=== PATIENT | male | born 1980 | race Caucasian/White ===

== ENCOUNTER 2022-05-14 07:43 | Emergency (ER) | payer SELFPAY ==
--- NOTE | 2022-05-14 07:45 | XR_ITS ---
WS: [id number] PORTABLE CHEST HISTORY: Elevated blood pressure COMPARISON: None available. Mild hyperexpansion. No pneumonia. No mass or nodule. No pleural effusion or pneumothorax. Cardiac size: Normal. Mediastinum/Aorta: Normal mediastinum. No osseous abnormality seen. XR/XR chest 1V portable [id number] IMPRESSION: Unremarkable portable chest.
[2022-05-14 07:49] VITALS: BP 138/86; PULSE 84; RESP 16; TEMP 37; O2SAT 97; BMI 20.5
--- NOTE | 2022-05-14 08:04 | ECG_ITS ---
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 Measurements Intervals [place] Rate: 77 P: 82 [place]: 130 QRS: 80 QRSD: 85 T: 68 QT: 356 QTc: 405 Interpretive Statements SINUS RHYTHM No previous ECG available for comparison Electronically Signed On 05-15-2022 9:23:07 BED LABORER by Elayne Cardona M.D. [id number]
--- NOTE | 2022-05-14 08:08 | W.ED.NAVMDI ---
HPI - Nausea/Vomiting/Diarrhea General: Chief complaint: Nausea/Vomiting/Diarrhea Stated complaint: High blood pressure/ stomach pain Time Seen by Provider: 05/14/22 07:45 Source: patient Mode of arrival: ambulatory History of Present Illness: 41-year-old male presents with multiple complaints is concerned about his blood pressure states it is in the 160s at night he says during the day it seems better he does not take anything for it. He also complained about some vomiting and diarrhea referred to some left lower quadrant pain although this seems to be a minimal complaint at the time that I seen seem to be when his focal complaints when he was seen the nurse in triage. Denies any medication melena hematemesis or coffee-ground emesis. No chest pain. MD elicited complaint: nausea, vomiting and diarrhea Onset (ago): day(s) Description of vomiting: food contents and watery Associated nausea: Yes Associated abdominal pain: Yes Location of pain: LLQ Pain consistency: intermittent Severity: mild Quality: cramping Exacerbating factors: none Relieving factors: none Associated symtoms: Reports nausea; Denies altered mental status, anxiety, bloating, change in vision, chest pain, cough, diaphoresis, decreased urine output, dizziness, dysuria, epistaxis, fatigue, malaise or palpitations Review of Systems Const: Denies: fever(s), chills, fatigue, malaise or diaphoresis Eyes: Denies: change in vision ENMT: Denies: throat pain, ear or mastoid pain or epistaxis Card: Denies: chest pain or palpitations Resp: Denies: dyspnea, productive cough or non-productive cough GI: Reports: abdominal pain, nausea, vomiting and diarrhea; Denies: bloating : Denies: dysuria Musc: Denies: neck pain or back pain Skin/Breast: Denies: rash or pruritus Neuro: Denies: dizziness Psych: Denies: anxiety PFSH ED PFSH: Medical History (Updated 05/14/22 @ 09:13 by William Roe DO) No significant past medical history Surgical History (Updated 05/14/22 @ 08:12 by William Roe DO) No pertinent past surgical history Social History (Updated 05/14/22 @ 08:12 by William Roe DO) Smoking and tobacco status: current every day smoker Alcohol intake: current Physical Exam Const: COMMON NORMALS: no acute distress EXAM LIMITATIONS: no altered mental status GENERAL APPEARANCE: cooperative and comfortable ORIENTATION/CONSCIOUSNESS: Yes awake, Yes oriented to person, Yes oriented to place and Yes oriented to time HENMT: COMMON NORMALS: normocephalic, atraumatic, hearing grossly normal bilaterally, external ears normal, EAC's normal, TM's normal bilaterally, Normal nasal mucous membranes and turbinates present, moist oral mucous membranes and oropharynx normal HEAD & SCALP: normocephalic and atraumatic NOSE: Normal nasal mucous membranes and turbinates present EXTERNAL EAR: Yes external ears normal EXTERNAL AUDITORY CANAL: EAC's normal TYMPANIC MEMBRANE: TM's normal bilaterally Eye: COMMON NORMALS: Equal, round and reactive pupils present, EOMs intact bilaterally, conjunctivae normal and no scleral icterus CONJUNCTIVA: Yes conjunctivae normal PUPIL: Yes Equal, round and reactive pupils present Neck/C-Spine: COMMON NORMALS: full ROM, no lymphadenopathy, supple and no JVD Lymph: LYMPHATIC: no lymphadenopathy noted and no lymphedema noted Resp: COMMON NORMALS: normal respiratory effort, No retractions, No use of accessory muscles and clear to auscultation bilaterally AUSCULTATION: clear to auscultation bilaterally Cardio: COMMON NORMALS: no JVD, regular rate, regular rhythm and No murmurs present (Cardio) RATE: regular rate RHYTHM: regular rhythm GI: COMMON NORMALS: Soft to palpation and No hepatosplenomegaly present AUSCULTATION: Yes normoactive bowel sounds PALPATION: Yes Soft to palpation, No Tenderness to palpation present (GI), No Guarding due to palpation present (GI) and Yes No hepatosplenomegaly present Extremity: COMMON NORMALS: normal to inspection, capillary refill normal, no clubbing, cyanosis or edema, no calf tenderness and no pedal edema Neuro: SENSORIUM/ORIENTATION: Yes oriented to person, Yes oriented to place and Yes oriented to time Skin: COMMON NORMALS: no rashes or lesions noted GENERAL SKIN EXAM: no rashes or lesions noted Course Vital Signs: Vital signs: Vital Signs Temperature 98.6 F 05/14/22 07:49 Pulse Rate 81 05/14/22 08:19 Respiratory Rate 16 05/14/22 08:19 Blood Pressure 130/93 05/14/22 08:19 Pulse Oximetry 98 05/14/22 08:19 Oxygen Delivery Me thod 05/14/22 08:19 MDM - Nausea/Vomiting/Diarrhea Medical Decision Making Labs unremarkable abdominal exam negative. Blood pressure normalized discharged home started on Pepcid establish with PCP to monitor blood pressure Medical Records I reviewed the patient's medical records. Lab Data I reviewed the patient's lab results. 05/14/22 08:14 05/14/22 08:14 Radiology Impressions Chest X-Ray 05/14/22 07:45 IMPRESSION: Unremarkable portable chest. Laboratory Results WBC 7.9 10^3/uL (4.0-10.0) 05/14/22 08:14 RBC 5.21 10^6/uL (4.1-5.3) 05/14/22 08:14 Hgb 16.7 g/dL (11.7-16.6) H 05/14/22 08:14 Hct 47.9 % (42.0-52.0) 05/14/22 08:14 MCV 91.9 fl (80-94) 05/14/22 08:14 MCH 32.1 pg (28.0-34.0) 05/14/22 08:14 MCHC 34.9 g/dL (30.0-36.0) 05/14/22 08:14 RDW 11.5 % (12.1-15.1) L 05/14/22 08:14 Plt Count 231 10^3/cmm (130-400) 05/14/22 08:14 MPV 11.3 fL (7.4-10.4) H 05/14/22 08:14 Neut % (Auto) 80.4 % 05/14/22 08:14 Lymph % (Auto) 12.7 % 05/14/22 08:14 [place] % (Auto) 4.9 % 05/14/22 08:14 Eos % (Auto) 0.5 % 05/14/22 08:14 Baso % (Auto) 0.5 % 05/14/22 08:14 Neut # (Auto) 6.33 10^3/uL (1.8-7.7) 05/14/22 08:14 Lymph # (Auto) 1.0 10^3/uL (0.8-4.8) 05/14/22 08:14 [place] # (Auto) 0.4 10^3/uL (0.2-0.9) 05/14/22 08:14 Eos # (Auto) 0.0 10^3/uL (0.0-0.8) 05/14/22 08:14 Baso # (Auto) 0.0 10^3/uL (0.0-0.1) 05/14/22 08:14 Nucleated RBC % (auto) 0 % 05/14/22 08:14 Nucleated RBCs # 0.0 /100WBC 05/14/22 08:14 Sodium 137 mmol/L (136-145) 05/14/22 08:14 Potassium 4.3 mmol/L (3.5-5.1) 05/14/22 08:14 Chloride 99 mmol/L (98-107) 05/14/22 08:14 Carbon Dioxide 25 mmol/L (22-29) 05/14/22 08:14 Anion Gap 17.3 (5-19) 05/14/22 08:14 BUN 8 mg/dL (6-20) 05/14/22 08:14 Creatinine 0.4 mg/dL (0.7-1.2) L 05/14/22 08:14 GFR Calculation 235.9 mL/min (90-130) H 05/14/22 08:14 Glucose 106 mg/dL (65-115) 05/14/22 08:14 Calculated Osmolality 283 mOsm/kg (285-295) L 05/14/22 08:14 Calcium 9.7 mg/dL (8.5-10.5) 05/14/22 08:14 Total Bilirubin 0.3 mg/dL (0.15-1.2) 05/14/22 08:14 AST 38 U/L (0-40) 05/14/22 08:14 ALT 38 U/L (0-41) 05/14/22 08:14 Alkaline Phosphatase 75 U/L (40-130) 05/14/22 08:14 Total Protein 8.3 g/dL (6.6-8.7) 05/14/22 08:14 Albumin 4.9 g/dL (3.5-5.2) 05/14/22 08:14 Globulin 3.4 g/dL (1.3-4.6) 05/14/22 08:14 Urine Color Colorless (Yellow) 05/14/22 08:04 Urine Appearance Clear (CLEAR) 05/14/22 08:04 Urine pH 7 (5-7) 05/14/22 08:04 Ur Specific [place] 1.005 (1.005-1.030) 05/14/22 08:04 Urine Protein Neg (Negative) 05/14/22 08:04 Urine Glucose (UA) Norm (Normal) 05/14/22 08:04 Urine Ketones Negative (Negative) 05/14/22 08:04 Urine Blood Neg (Negative) 05/14/22 08:04 Urine Nitrate Negative (Negative) 05/14/22 08:04 Urine Bilirubin Neg (Negative) 05/14/22 08:04 Urine Urobilinogen Norm mg/dL (Negative) 05/14/22 08:04 Ur Leukocyte Esterase Negative (Negative) 05/14/22 08:04 Discharge Plan Discharge Patient Disposition: Home Clinical Impression: Elevated blood pressure reading, Dyspepsia Prescriptions: New Pepcid 40 mg tablet 40 mg PO BID Qty: 60 0RF Discharge Orders: Discharge ED (Routine); Ordered 05/14/22 Ordered By: William Roe Patient Instructions: Opioid Safety, Pain Management Activity Restrictions/Additional Instructions: You are seen today for complaint of elevated blood pressure and abdominal pain. Your blood pressure normalized while you are in the emergency room your labs are unremarkable. Your abdominal exam was normal. We will start you on Pepcid. We will also have case management make arrangements for you to follow-up with a primary care doctor if your abdominal exam recurs or worsens they can refer as appropriate. They can also assist you with monitoring your blood pressure. Coding Level of Care Code ED Dental Floss Packer for Chg Fwd Exam Comprehensive
[2022-05-14 08:19] VITALS: BP 130/93; PULSE 81; RESP 16; O2SAT 98
[2022-05-14 08:22] LABS: Basophils % 0.5 %; Eosinophils % 0.5 %; Hematocrit 47.9 % (42.0-52.0); Hemoglobin 16.7 g/dL (11.7-16.6); Lymphocytes % 12.7 %; Mean Corpuscular HGB Conc 34.9 g/dL (30.0-36.0); Mean Corpuscular Hemoglobin 32.1 pg (28.0-34.0); Mean Corpuscular Volume 91.9 fl (80-94); Mean Platelet Volume 11.3 fL (7.4-10.4); Monocytes # 0.4 10^3/uL (0.2-0.9); Monocytes % 4.9 %; Neutrophils # 6.33 10^3/uL (1.8-7.7); Neutrophils % 80.4 %; Nucleated Red Blood Cells % 0 %; Platelet Count 231 10^3/cmm (130-400); Red Blood Count 5.21 10^6/uL (4.1-5.3); Red Cell Distribution Width 11.5 % (12.1-15.1); White Blood Count 7.9 10^3/uL (4.0-10.0)
[2022-05-14 08:25] LABS: Add Urine Microscopic? NO; Charge for UA Resulting for Rev
[2022-05-14 08:30] LABS: Bilirubin Urine Neg (Negative); Blood Urine Neg (Negative); Glucose Urine UA Norm (Normal); Ketones Urine Negative (Negative); Leukocyte Esterase Urine Negative (Negative); Nitrate Urine Negative (Negative); Protein Urine Neg (Negative); Specific Gravity, Urine 1.005 (1.005-1.030); Urine Appearance Clear (CLEAR); Urine Color Colorless (Yellow); Urobilinogen Urine Norm (Negative); pH Urine 7 (5-7)
[2022-05-14 08:43] LABS: Alanine Aminotransferase 38 U/L (0-41); Albumin Level 4.9 g/dL (3.5-5.2); Alkaline Phosphatase 75 U/L (40-130); Anion Gap 17.3 (5-19); Aspartate Amino Transferase 38 U/L (0-40); Blood Urea Nitrogen 8 mg/dL (6-20); Calcium 9.7 mg/dL (8.5-10.5); Carbon Dioxide 25 mmol/L (22-29); Chloride 99 mmol/L (98-107); Globulin 3.4 g/dL (1.3-4.6); Glomerular Filtration Rate 235.9 mL/min (90-130); Glucose 106 mg/dL (65-115); Osmolality Calculated 283 mOsm/kg (285-295); Potassium 4.3 mmol/L (3.5-5.1); Sodium 137 mmol/L (136-145); Total Bilirubin 0.3 mg/dL (0.15-1.2); Total Protein 8.3 g/dL (6.6-8.7)
[2022-05-14 09:21] VITALS: BP 129/85; PULSE 78; RESP 16; O2SAT 98
--- NOTE | 2022-05-15 10:31 | DCPLANNER ---
assignment manager had message to speak with patient about getting established with a primary care physician. assignment manager called phone number [phone], unable to speak with patient at this time, and unable to leave a voicemail with patient.
== END 2022-05-14 09:23 | disposition home or self-care (01) ==
PROVIDERS: Emergency Provider Family Medicine
DX: R03.0 Elevated blood-pressure reading, without diagnosis of hypertension (principal); R10.13 Epigastric pain; F17.210 Nicotine dependence, cigarettes, uncomplicated
CPT/HCPCS: 71045; 80053; 81003; 85025; 93005; 99285

== ENCOUNTER → 2022-07-31 14:48 | Outpatient (BNVA) | payer SELFPAY | PROVIDERS: PCP Family Medicine; Visit Provider Family Medicine | DX: K21.9 Gastro-esophageal reflux disease without esophagitis (principal); K44.9 Diaphragmatic hernia without obstruction or gangrene; I10 Essential (primary) hypertension | CPT/HCPCS: 80053; 80061; 83036; 84443; 85025 ==

== ENCOUNTER → 2022-09-26 12:16 | Outpatient (BNVA) | payer SELFPAY | PROVIDERS: PCP Family Medicine; Visit Provider Family Medicine | DX: R11.2 Nausea with vomiting, unspecified (principal); K52.9 Noninfective gastroenteritis and colitis, unspecified | CPT/HCPCS: 80053; 80074; 83690; 85025; 85651; 86003; 86008; 86140; 86618; 86666; 86757 ==

== ENCOUNTER 2022-12-17 12:47 | Emergency (ER) | payer SELFPAY ==
[2022-12-17 12:53] VITALS: BP 130/89; PULSE 112; RESP 18; TEMP 36.7; O2SAT 98
--- NOTE | 2022-12-17 13:13 | ECG_ITS ---
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 Measurements Intervals [place] Rate: 104 P: 71 [place]: 136 QRS: 32 QRSD: 85 T: 39 QT: 326 QTc: 429 Interpretive Statements SINUS TACHYCARDIA ABNORMAL RHYTHM ECG INTERPRETATION BASED ON A DEFAULT AGE OF 40 YEARS Compared to ECG 05/14/2022 08:04:33 Sinus rhythm no longer present Electronically Signed On 12-17-2022 22:44:53 CDT by Elayne Cardona M.D. [id number]
[2022-12-17 13:46] LABS: Basophils # 0.1 10^3/uL (0.0-0.1); Basophils % 0.9 %; Hematocrit 45.2 % (42.0-52.0); Hemoglobin 15.9 g/dL (11.7-16.6); Lymphocytes # 1.1 10^3/uL (0.8-4.8); Lymphocytes % 12.6 %; Mean Corpuscular HGB Conc 35.2 g/dL (30.0-36.0); Mean Corpuscular Hemoglobin 31.9 pg (28.0-34.0); Mean Corpuscular Volume 90.8 fl (80-94); Mean Platelet Volume 11.5 fL (7.4-10.4); Monocytes # 0.6 10^3/uL (0.2-0.9); Monocytes % 7.3 %; Neutrophils # 6.91 10^3/uL (1.8-7.7); Neutrophils % 78.9 %; Nucleated Red Blood Cells % 0 %; Platelet Count 193 10^3/cmm (130-400); Red Blood Count 4.98 10^6/uL (4.1-5.3); Red Cell Distribution Width 11.2 % (12.1-15.1); White Blood Count 8.8 10^3/uL (4.0-10.0)
[2022-12-17] MEDS: diphenhydrAMINE 50 mg/mL SDV 1mL IVP (14:01)
[2022-12-17] MEDS: prochlorperazine 10 mg/2 mL Inj 5 MG IVP (14:02)
[2022-12-17] MEDS: sodium chloride 0.9% 1,000 ML 999 ML IV (14:02)
[2022-12-17 14:07] VITALS: BP 147/93; PULSE 103; RESP 18; O2SAT 99
[2022-12-17 14:10] LABS: Alanine Aminotransferase 111 U/L (0-41); Alkaline Phosphatase 84 U/L (40-130); Anion Gap 20.9 (5-19); Aspartate Amino Transferase 99 U/L (0-40); Blood Urea Nitrogen 6 mg/dL (6-20); Calcium 9.9 mg/dL (8.5-10.5); Carbon Dioxide 26 mmol/L (22-29); Chloride 91 mmol/L (98-107); Globulin 3.8 g/dL (1.3-4.6); Glucose 113 mg/dL (65-115); Lipase 50 U/L (13-60); Osmolality Calculated 276 mOsm/kg (285-295); Potassium 3.9 mmol/L (3.5-5.1); Sodium 134 mmol/L (136-145); Total Bilirubin 0.8 mg/dL (0.15-1.2); Total Protein 8.8 g/dL (6.6-8.7)
[2022-12-17 14:11] LABS: Add Urine Microscopic? NO; Charge for UA Resulting for Rev
[2022-12-17 14:14] LABS: Bilirubin Urine Neg (Negative); Blood Urine Neg (Negative); Glucose Urine UA Norm (Normal); Ketones Urine 2+ (Negative); Leukocyte Esterase Urine Negative (Negative); Nitrate Urine Negative (Negative); Protein Urine Neg (Negative); Urine Appearance Clear (CLEAR); Urine Color Straw (Yellow); Urobilinogen Urine Norm (Negative); pH Urine 5 (5-7)
[2022-12-17 14:23] LABS: Amphetamines Screen Urine Negative (Negative); Barbiturates Screen Urine Negative (Negative); Benzodiazepines Screen Urine Negative (Negative); Cocaine Screen Urine Negative (Negative); Opiate Screen Urine Negative (Negative); PCP Screen Urine Negative (Negative); THC Screen Urine Negative (Negative)
[2022-12-17 15:00] VITALS: BP 143/94; PULSE 71; RESP 18; O2SAT 99
--- NOTE | 2022-12-17 15:05 | ED_ITS ---
HPI - Nausea/Vomiting/Diarrhea General: Chief complaint: Nausea/Vomiting/Diarrhea Stated complaint: high B/P sent by Time Seen by Provider: 12/17/22 13:35 History of Present Illness: 42-year-old male presents to the emergency department stating he woke up early this morning with nausea vomiting diarrhea. He reports that he gets diarrhea about once per week. He does not know why. He has not taken antibiotics recently. No history of C. difficile. He does not get fevers with this. Nothing black or bloody in his stool. No mucus. He has never had a colonoscopy. Patient reports he also feels like his heart races. This has been an ongoing issue for a long time. He usually races at night. He is not sure what the causes. He has no history of heart or lung disease per his report. He does drink beer on a daily basis. He has a history of transaminitis as well as GERD. Unclear if symptoms are related to alcohol use. He has had his appendix removed. He denies any abdominal pain today. Associated nausea: Yes Associated symtoms: Reports nausea and palpitations; Denies altered mental status, change in vision, chest pain, dysuria, headache(s) or syncope Review of Systems General: Reports: 10 or more systems reviewed and unremarkable except in HPI and below Const: Denies: fever(s), chills or body aches Eyes: Denies: change in vision ENMT: Denies: throat pain Card: Reports: palpitations; Denies: chest pain, edema, lightheadedness or syncope Resp: Denies: dyspnea or productive cough GI: Reports: nausea, vomiting and diarrhea; Denies: abdominal pain, hematemesis, coffee ground emesis, dysphagia, hematochezia, melena or mucus in stool : Denies: flank pain, dysuria or urinary frequency Musc: Denies: neck pain, back pain, extremity pain or extremity swelling Skin/Breast: Denies: rash or erythema Neuro: Denies: headache(s), numbness in extremities, weakness in extremities, lack of coordination or difficulty walking [facility] ED PFSH: Medical History No significant past medical history Surgical History History of appendectomy History of surgery Infection in ribs No pertinent past surgical history Family History Denies family history of Diabetes CAD (coronary artery disease) Clotting disorder Dementia Hyperlipidemia Psychiatric illness Chronic kidney disease (CKD) Suicide Anesthesia complication Bleeding disorder Family history of premature coronary artery disease Lung disease Cancer Hypertension Stroke Social History Smoking and tobacco status: never smoked Second hand smoke exposure: No Smoking risk assessment/counseling performed?: No Alcohol intake: current Alcohol intake frequency: 3 or more drinks per day Alcohol type: beer Desire information about alcohol rehabilitation?: No Counseling given: No Substance/Drug Use: never Desire information about substance/drug rehabilitation?: No Counseling given: No Adopted: No Caregiver/support person: No Lives independently: Yes Marital status: Single Number of children: 0 service: No Current occupational status: employed 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 Physical Exam Const: COMMON NORMALS: no limitations, alert and well nourished EXAM LIMITATIONS: no altered mental status HENMT: COMMON NORMALS: normocephalic, atraumatic and external ears normal HEAD & SCALP: normocephalic and atraumatic EXTERNAL EAR: Yes external ears normal MOUTH: no muffled voice Eye: COMMON NORMALS: EOMs intact bilaterally, conjunctivae normal and no scleral icterus CONJUNCTIVA: Yes conjunctivae normal Neck/C-Spine: COMMON NORMALS: no JVD GENERAL: Yes normal visual inspection and Yes trachea midline Resp: COMMON NORMALS: normal respiratory effort, No use of accessory muscles and clear to auscultation bilaterally AUSCULTATION: clear to auscultation bilaterally Cardio: COMMON NORMALS: no JVD, regular rate and regular rhythm RATE: regular rate RHYTHM: regular rhythm GI: COMMON NORMALS: Soft to palpation and non-tender INSPECTION: Yes normal to inspection AUSCULTATION: Yes Hyperactive bowel sounds present PA LPATION: Yes Soft to palpation and No Guarding due to palpation present (GI) Extremity: COMMON NORMALS: normal to inspection Neuro: COMMON NORMALS: moves all extremities, no focal motor deficits and no sensory deficits noted SENSORIUM/ORIENTATION: Yes alert SPEECH: speech normal Psych: COMMON NORMALS: mental status grossly normal, Normal thought process present, cooperative and speech normal SPEECH: Yes normal speech MOOD & AF FECT: Yes anxious THOUGHT PROCESS: Normal thought process present Skin: COMMON NORMALS: no rashes or lesions noted, turgor normal and no jaundice GENERAL SKIN EXAM: no rashes or lesions noted and turgor normal Course Vital Signs: Vital signs: Vital Signs Temperature 98.1 F 12/17/22 12:53 Pulse Rate 71 12/17/22 15:00 Respiratory Rate 18 12/17/22 15:00 Blood Pressure 143/94 12/17/22 15:00 Pulse Oximetry 99 12/17/22 15:00 Oxygen Delivery Me thod Room Air 12/17/22 15:00 MDM - Nausea/Vomiting/Diarrhea Medical Decision Making 42-year-old male presents with nausea vomiting diarrhea. He does not appear toxic. His diarrhea seems to be a chronic recurrent issue. He denies any high risk factors for infectious diarrhea. He feels like his heart is racing during the time of examination but it is 76, sinus rhythm, no ectopy. He does appear somewhat anxious. There is the possibility that he is having a paroxysmal arrhythmia or sinus tachycardia. There is also the question whether alcohol use precipitates his GI symptoms and heart racing. Abdomen is soft and nontender. No reason for CT imaging today. I did send some blood work and noted that his white blood cell count was normal, hemoglobin normal, platelets normal. Sodium is 134, chloride 91. Bicarb is 26, probably from vomiting. Renal function is normal. He does have some transaminitis. This appears to be chronic. He has some ketones in his urine, likely related to starvation since he has been having vomiting today. I ordered him some Compazine and Benadryl followed by Elma as he did not feel that his symptoms had resolved. He is also gotten 1 L of IV fluid and 4 of morphine. I will order him some diarrhea medicine to help slow this down as well. Low suspicion for C. difficile, or invasive diarrheas Lab Data 12/17/22 13:05 12/17/22 13:05 Laboratory Results WBC 8.8 10^3/uL (4.0-10.0) 12/17/22 13:05 RBC 4.98 10^6/uL (4.1-5.3) 12/17/22 13:05 Hgb 15.9 g/dL (11.7-16.6) 12/17/22 13:05 Hct 45.2 % (42.0-52.0) 12/17/22 13:05 MCV 90.8 fl (80-94) 12/17/22 13:05 MCH 31.9 pg (28.0-34.0) 12/17/22 13:05 MCHC 35.2 g/dL (30.0-36.0) 12/17/22 13:05 RDW 11.2 % (12.1-15.1) L 12/17/22 13:05 Plt Count 193 10^3/cmm (130-400) 12/17/22 13:05 MPV 11.5 fL (7.4-10.4) H 12/17/22 13:05 Neut % (Auto) 78.9 % 12/17/22 13:05 Lymph % (Auto) 12.6 % 12/17/22 13:05 [place] % (Auto) 7.3 % 12/17/22 13:05 Eos % (Auto) 0.0 % 12/17/22 13:05 Baso % (Auto) 0.9 % 12/17/22 13:05 Neut # (Auto) 6.91 10^3/uL (1.8-7.7) 12/17/22 13:05 Lymph # (Auto) 1.1 10^3/uL (0.8-4.8) 12/17/22 13:05 [place] # (Auto) 0.6 10^3/uL (0.2-0.9) 12/17/22 13:05 Eos # (Auto) 0.0 10^3/uL (0.0-0.8) 12/17/22 13:05 Baso # (Auto) 0.1 10^3/uL (0.0-0.1) 12/17/22 13:05 Nucleated RBC % (auto) 0 % 12/17/22 13:05 Nucleated RBCs # 0.0 /100WBC 12/17/22 13:05 Sodium 134 mmol/L (136-145) L 12/17/22 13:05 Potassium 3.9 mmol/L (3.5-5.1) 12/17/22 13:05 Chloride 91 mmol/L (98-107) L 12/17/22 13:05 Carbon Dioxide 26 mmol/L (22-29) 12/17/22 13:05 Anion Gap 20.9 (5-19) H 12/17/22 13:05 BUN 6 mg/dL (6-20) 12/17/22 13:05 Creatinine 0.6 mg/dL (0.7-1.2) L 12/17/22 13:05 GFR Calculation 147.0 mL/min (90-130) H 12/17/22 13:05 Glucose 113 mg/dL (65-115) 12/17/22 13:05 Calculated Osmolality 276 mOsm/kg (285-295) L 12/17/22 13:05 Calcium 9.9 mg/dL (8.5-10.5) 12/17/22 13:05 Total Bilirubin 0.8 mg/dL (0.15-1.2) 12/17/22 13:05 AST 99 U/L (0-40) H 12/17/22 13:05 ALT 111 U/L (0-41) H 12/17/22 13:05 Alkaline Phosphatase 84 U/L (40-130) 12/17/22 13:05 Total Protein 8.8 g/dL (6.6-8.7) H 12/17/22 13:05 Albumin 5.0 g/dL (3.5-5.2) 12/17/22 13:05 Globulin 3.8 g/dL (1.3-4.6) 12/17/22 13:05 Lipase 50 U/L (13-60) 12/17/22 13:05 Urine Color Straw (Yellow) 12/17/22 14:01 Urine Appearance Clear (CLEAR) 12/17/22 14:01 Urine pH 5 (5-7) 12/17/22 14:01 Ur Specific [place] 1.010 (1.005-1.030) 12/17/22 14:01 Urine Protein Neg (Negative) 12/17/22 14:01 Urine Glucose (UA) Norm (Normal) 12/17/22 14:01 Urine Ketones 2+ (Negative) H 12/17/22 14:01 Urine Blood Neg (Negative) 12/17/22 14:01 Urine Nitrate Negative (Negative) 12/17/22 14:01 Urine Bilirubin Neg (Negative) 12/17/22 14:01 Urine Urobilinogen Norm mg/dL (Negative) 12/17/22 14:01 Ur Leukocyte Esterase Negative (Negative) 12/17/22 14:01 Urine Opiates Screen Negative ng/mL (Negative) 12/17/22 14:01 Ur Barbiturates Screen Negative ng/mL (Negative) 12/17/22 14:01 Ur Phencyclidine Scrn Negative ng/mL (Negative) 12/17/22 14:01 Ur Amphetamines Screen Negative ng/mL (Negative) 12/17/22 14:01 U Benzodiazepines Scrn Negative ng/mL (Negative) 12/17/22 14:01 Urine Cocaine Screen Negative ng/mL (Negative) 12/17/22 14:01 U Marijuana (THC) Screen Negative ng/mL (Negative) 12/17/22 14:01 Discharge Plan Discharge Condition: Stable Prescriptions: No Action pantoprazole [Protonix] 40 mg tablet,delayed release (DR/EC) 40 mg PO DAILY Qty: 30 5RF lisinopril 5 mg tablet 5 mg PO DAILY Qty: 14 0RF ondansetron HCl 4 mg tablet 4 mg PO Q6H Qty: 30 2RF doxycycline hyclate 100 mg tablet 100 mg PO BID 10 Days Qty: 20 0RF Pepcid 40 mg tablet 40 mg PO BID Qty: 60 0RF Coding Level of Care Code ED [employer] Engine Firer/Fireman for Florinda Blackwell
[2022-12-17 15:11] VITALS: RESP 18
[2022-12-17] MEDS: morphine 4 mg/mL SDV 1 mL IVP (15:11)
[2022-12-17] MEDS: alum-mag-hydroxide-sime 30 mL UDC PO (15:12)
[2022-12-17] MEDS: ondansetron 2 mg/ML SDV 2 mL 4 MG IVP (15:12)
[2022-12-17] MEDS: loperamide 2 mg Capsule 4 MG PO (15:26)
[2022-12-17 15:29] VITALS: BP 150/96; PULSE 96; O2SAT 99
--- NOTE | 2022-12-18 09:54 | DCPLANNER ---
project development manager had message to speak with patient about getting established with a primary care provider. Patient states that he sees Dr. Pham at [facility].
== END 2022-12-17 15:31 | disposition home or self-care (01) ==
PROVIDERS: Emergency Provider Emergency Medicine; PCP Family Medicine
DX: R74.01 Elevation of levels of liver transaminase levels (principal); K52.9 Noninfective gastroenteritis and colitis, unspecified
CPT/HCPCS: 80053; 80306; 81003; 83690; 85025; 93005; 96361; 96374; 96375; 99284; J0780; J1200; J2270; J2405; J7030

== ENCOUNTER → 2023-10-30 12:08 | Outpatient (BNVA) | payer SELFPAY | PROVIDERS: PCP Family Medicine; Visit Provider Family Medicine | DX: I10 Essential (primary) hypertension (principal); K21.9 Gastro-esophageal reflux disease without esophagitis; K52.9 Noninfective gastroenteritis and colitis, unspecified; E83.42 Hypomagnesemia; E55.9 Vitamin D deficiency, unspecified; R79.89 Other specified abnormal findings of blood chemistry | CPT/HCPCS: 80053; 80061; 82306; 82607; 82746; 83735; 84443; 85025; 85651; 86140 ==

== ENCOUNTER 2024-10-29 06:13 | Day surgery (SDC) | payer SELFPAY ==
[2024-10-29 06:30] VITALS: BP 122/92; PULSE 88; RESP 18; TEMP 36.3; O2SAT 97; BMI 20.5
[2024-10-29] MEDS: sodium chloride 0.9% 1,000 ML 15 ML IV (06:39)
--- NOTE | 2024-10-29 06:45 | ANES.PREANE2 ---
Pre-Anesthetic Assessment Height/Weight: Height 5 ft 8 in Weight 135 lb Temp Pulse Resp BP Pulse Ox O2 Del Method 97.4 F L 88 18 122/92 97 Room Air 10/29/24 06:30 10/29/24 06:30 10/29/24 06:30 10/29/24 06:30 10/29/24 06:30 10/29/24 06:30 Preop Diagnosis: Routine colonoscopy Operation Date: 10/29/24 07:40 Proposed Procedures p Colonoscopy [id number] G0121 Z12.11(Not Applicable) - Tobias Tejeda MD Was Beta Lyly taken within 24 hours: N/A Was Clonidine taken within 24 hours: N/A Last intake: Intake Last Liquid Date 10/28/24 Last Liquid Time 23:45 Last Solid Date 10/27/24 Last Solid Time 19:00 Social No alcohol and No tobacco Exam alert, oriented x 3, clear to auscultation bilaterally and regular rate & rhythm Airway Submandibular: within normal limits Cervical ROM: within normal limits Mallampati: Class II Dentition: full Anesthetic Plan ASA status: 2 Anesthesia: MAC Other: No prior issues with anesthesia Completed bowel prep History of hypertension on losartan, taken yesterday Denies any pulmonary issues METs greater than 4 Plan for MAC anesthesia Medications/Allergies Home Medications ?Medication ?Instructions ?Recorded ?Confirmed ?Last Taken ?Type loperamide 2 mg capsule 2 mg PO Q6H PRN loose stool #30 09/09/24 10/26/24 10/26/24 Rx caps losartan 25 mg tablet 25 mg PO DAILY #30 tabs 09/09/24 10/26/24 10/28/24 Rx Allergies Allergy/AdvReac Type Severity Reaction Status Date / Time No Known Allergies Allergy Verified 09/23/24 13:54 Current Medications Generic Name Dose Route Start Last Admin Trade Name Freq PRN Reason Stop Dose Admin Sodium Chloride 1,000 mls @ 15 mls/hr 10/29/24 06:21 10/29/24 06:39 Sodium Chloride 0.9% IV 10/30/24 06:20 15 mls/hr .Q24H PRN Administration COLONOSCOPY FLUIDS PFSH Anesthesia Medical History No significant past medical history Surgical History (Updated 09/23/24 @ 13:58 by AURELIO Calderon) History of appendectomy History of surgery Infection in ribs No pertinent past surgical history Family History Denies family history of Diabetes CAD (coronary artery disease) Clotting disorder Dementia Hyperlipidemia Psychiatric illness Chronic kidney disease (CKD) Suicide Anesthesia complication Bleeding disorder Family history of premature coronary artery disease Lung disease Cancer Hypertension Stroke Social History Smoking and tobacco/nicotine status: never used tobacco/nicotine Second hand smoke exposure: No Alcohol intake: current Alcohol intake frequency: 3 or more drinks per day Alcohol type: beer Substance/Drug Use: never Adopted: No Caregiver/support person: No Lives independently: Yes Marital status: Single Number of children: 0 service: No Current occupational status: employed 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
--- NOTE | 2024-10-29 07:25 | W.PM.OPSFHP ---
Same Day Surgery H&P Indication for Procedure/HPI DATE OF PROCEDURE: October 29, 2024 CHIEF COMPLAINT/INDICATIONFOR SURGICAL PROCEDURE: need for screening colonoscopy PREOP DIAGNOSIS: Routine colonoscopy PLANNED PROCEDURE: Operation Date: 10/29/24 07:40 Proposed Procedures p Colonoscopy [id number](Not Applicable) - Tobias Tejeda MD need for screening colonoscopy Medications/Allergies* Allergies/Adverse Reactions Allergy/AdvReac Type Severity Reaction Status Date / Time No Known Allergies Allergy Verified 09/23/24 13:54 Current Medications: Generic Name Dose Route Start Last Admin Trade Name Freq PRN Reason Stop Dose Admin Sodium Chloride 1,000 mls @ 15 mls/hr 10/29/24 06:21 10/29/24 06:39 Sodium Chloride 0.9% IV 10/30/24 06:20 15 mls/hr .Q24H PRN Administration COLONOSCOPY FLUIDS Pertinent History/Comorbid Conditions* Medical History (Updated 09/09/24 @ 13:33 by Ky Pham DO) No significant past medical history Surgical History (Updated 08/29/22 @ 14:33 by Peewee Mccormick DO) History of appendectomy History of surgery Infection in ribs No pertinent past surgical history Family History (Updated 07/31/22 @ 13:45 by Jolly Henson LPN) Denies family history of Diabetes CAD (coronary artery disease) Clotting disorder Dementia Hyperlipidemia Psychiatric illness Chronic kidney disease (CKD) Suicide Anesthesia complication Bleeding disorder Family history of premature coronary artery disease Lung disease Cancer Hypertension Stroke Social History Smoking and tobacco/nicotine status: never used tobacco/nicotine Second hand smoke exposure: No Alcohol intake: current Alcohol intake frequency: 3 or more drinks per day Alcohol type: beer Substance/Drug Use: never Adopted: No Caregiver/support person: No Lives independently: Yes Marital status: Single Number of children: 0 service: No Current occupational status: employed 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
[2024-10-29 07:40] VITALS: BP 110/75; PULSE 95; RESP 18; TEMP 36.3; O2SAT 97
[2024-10-29 07:52] VITALS: BP 119/85; PULSE 76; RESP 18; TEMP 36.2; O2SAT 100
--- NOTE | 2024-10-29 08:06 | ANE.PACU2 ---
Inpatient post-anesthesia follow up: Airway intact: Yes Vital signs: Temperature 97.1 F Pulse Rate 76 Respiratory Rate 18 Blood Pressure 119/85 Pulse Oximetry 100 Oxygen Delivery Me thod Room Air Oxygen Flow Rate Fraction of Inspir ed Oxygen Hydration adequate: Yes Nausea and vomiting: No Pain level: 1 Mental status: Baseline
== END 2024-10-29 08:06 | disposition home or self-care (01) ==
PROVIDERS: PCP Family Medicine; Visit Provider Surgery
PROC: 0DJD8ZZ Inspection of Lower Intestinal Tract, Via Natural or Artificial Opening Endoscopic (ICD-10-PCS; CPT 45378; principal; 2024-10-29 07:40)
DX: Z12.11 Encounter for screening for malignant neoplasm of colon (principal); I10 Essential (primary) hypertension; Z79.899 Other long term (current) drug therapy
CPT/HCPCS: 45378; J2704; J3490; J7030; J9999